=== PATIENT | female | born 1950 | race African-American/Black ===

== ENCOUNTER 2019-11-09 11:23 | Emergency (ER) | payer MEDICARE, MEDICAID ==
[~2019-11-09] VITALS: Ht 165.1 cm; Wt 80.0 kg
[~2019-11-09 11:23] MED LIST: ASPI-1497 PO; CLAR10 PO; GUAI1TBM14 PO; IBUP-2028 PO; MELO-106 PO; METF-414 PO; NASOI BOTHNSTRLS
[2019-11-09 14:37] VITALS: BP 122/78
== END 2019-11-09 14:38 | disposition home or self-care (01) ==
LOC: ER 12:06
DX: G89.29 Other chronic pain (principal); M54.9 Dorsalgia, unspecified; D64.9 Anemia, unspecified; J45.909 Unspecified asthma, uncomplicated; E11.9 Type 2 diabetes mellitus without complications; Z98.890 Other specified postprocedural states; Z79.82 Long term (current) use of aspirin; Z79.899 Other long term (current) drug therapy; Z88.5 Allergy status to narcotic agent
CPT/HCPCS: 72128; 72131; 99285

== ENCOUNTER 2021-02-27 10:16 | Emergency (ER) | payer MEDICARE, MEDICAID ==
[~2021-02-27] VITALS: Ht 165.1 cm; Wt 90.0 kg
[2021-02-27] MEDS: ACETAMINOPHEN 325MG TABLET PO ONE (11:41)
[2021-02-27] MEDS: LIDOCAINE 5% PATCH TOP SCH (12:28)
[2021-02-27 14:31] VITALS: BP 134/79
== END 2021-02-27 14:56 | disposition home or self-care (01) ==
LOC: ER 10:16
DX: M16.12 Unilateral primary osteoarthritis, left hip (principal); I10 Essential (primary) hypertension; Z88.5 Allergy status to narcotic agent; Z79.82 Long term (current) use of aspirin; Z79.899 Other long term (current) drug therapy; Z98.890 Other specified postprocedural states
CPT/HCPCS: 73700; 99284

== ENCOUNTER 2021-04-28 12:04 | Emergency (ER) | payer MEDICARE, MEDICAID ==
[~2021-04-28] VITALS: Ht 165.1 cm; Wt 87.0 kg
[2021-04-28] MEDS ORDERED: IPRATROPIUM/ALBUTEROL 0.5-3(2.5)MG/3ML NEB HHN ONE (15:00)
[2021-04-28 15:08] LABS: BASOPHILS % 0.2 % (0.0-2.0); HEMATOCRIT. 39.8 % (36.0-48.0); HEMOGLOBIN. 14.2 g/dL (12.0-16.0); LYMPHOCYTES % 13.8 % (20.0-50.0); MEAN CORPUSCULAR HEMOGLOBIN 32.1 pg (28.0-32.0); MEAN CORPUSCULAR VOLUME 90.1 fL (81.0-99.0); MEAN PLATELET VOLUME 8.6 fl (7.4-10.4); MONOCYTES % 8.4 % (2.0-8.0); NEUTROPHILS % 77.6 % (40.0-76.0); PLATELET 316 x1000/uL (130-400); RED BLOOD CELL COUNT 4.42 mill/uL (4.2-5.4); RED CELL DISTRIBUTION WIDTH 13.9 % (11.6-14.6)
[2021-04-28 15:13] LABS: CHLORIDE 109 mEq/L (98-107)
[2021-04-28] MEDS ORDERED: DEXAMETHASONE 6MG TABLET PO NR (17:45)
[2021-04-28] MEDS ORDERED: ALBU18HF2 IH (17:51)
[2021-04-28] MEDS ORDERED: DEX6 MT (17:51)
[2021-04-28 18:15] VITALS: BP 139/67
== END 2021-04-28 18:16 | disposition left against medical advice (07) ==
LOC: ER 12:04 → CANBEDREQ 20:54
DX: U07.1 COVID-19 (principal); J12.82 Pneumonia due to coronavirus disease 2019; R06.00 Dyspnea, unspecified; I11.0 Hypertensive heart disease with heart failure; I50.9 Heart failure, unspecified; E11.9 Type 2 diabetes mellitus without complications; Z98.890 Other specified postprocedural states; Z79.82 Long term (current) use of aspirin; Z79.899 Other long term (current) drug therapy; Z88.6 Allergy status to analgesic agent
CPT/HCPCS: 36415; 71045; 80053; 83880; 84484; 85025; 87426; 93005; 94640; 99285

== ENCOUNTER 2023-06-11 15:48 | Emergency (ER) | payer MEDICARE, MEDICAID ==
[~2023-06-11] VITALS: Ht 165.1 cm; Wt 78.0 kg
[~2023-06-11 15:48] MED LIST changes: +ALBU18HF2 IH; +DEX6 MT
[2023-06-11 15:50] VITALS: PULSE 92; RESP 18
[2023-06-11 15:55] VITALS: BP 134/63; TEMP 98.3; O2SAT 100
[2023-06-11 17:26] LABS: CLARITY URINE CLOUDY (CLEAR); COLOR URINE YELLOW (YELLOW); GLUCOSE URINE NEGATIVE (NEGATIVE); KETONES URINE NEGATIVE (NEGATIVE); LEUKOCYTE ESTERASE URINE TRACE (NEGATIVE); NITRITE URINE NEGATIVE (NEGATIVE); OCCULT BLOOD URINE 3+ (NEGATIVE); PROTEIN URINE TRACE (NEGATIVE); SPECIFIC GRAVITY URINE 1.041 (1.005-1.030)
[2023-06-11 17:50] LABS: BACTERIA URINE 2+; SQUAMOUS EPITHELIAL CELL URINE 2+ /lpf (RARE/1+); WBC URINE 0-2 /hpf (0-2)
== END 2023-06-11 18:40 | disposition home or self-care (01) ==
LOC: ER 15:48
DX: R31.9 Hematuria, unspecified (principal); E11.9 Type 2 diabetes mellitus without complications; I10 Essential (primary) hypertension; Z79.899 Other long term (current) drug therapy; Z88.5 Allergy status to narcotic agent
CPT/HCPCS: 81003; 99283